=== PATIENT | male | born 1990 | race Caucasian/White ===

== ENCOUNTER → 2019-05-06 | Outpatient (CLI) | payer OTHER ==
[2019-05-06 10:49] LABS: ALBUMIN 3.6 GM/DL (3.2-5.2); ALT/SGPT 24 U/L (12-78); BILIRUBIN,TOTAL 0.3 MG/DL (0.2-1.0); BLOOD UREA NITROGEN 13 MG/DL (7-18); CALCIUM LEVEL 8.4 MG/DL (8.5-10.1); CARBON DIOXIDE LEVEL 26 MEQ/L (21-32); CHLORIDE LEVEL 109 MEQ/L (98-107); CHOLESTEROL LEVEL 176 MG/DL (<200); CHOLESTEROL RISK RATIO 6.068 (<5); CREATININE FOR GFR 0.76 MG/DL (0.70-1.30); FREE T4 1.06 NG/DL (0.76-1.46); GLOMERULAR FILTRATION RATE > 60.0 (>60); GLUCOSE, FASTING 91 MG/DL (70-100); HDL CHOLESTEROL 29 MG/DL (>40); LDL CHOLESTEROL 124 MG/DL (<100); NON-HDL-C 147 MG/DL; POTASSIUM SERUM 4.6 MEQ/L (3.5-5.1); SODIUM LEVEL 141 MEQ/L (136-145); TRIGLYCERIDES LEVEL 116 MG/DL (<150)
[2019-05-06 11:18] LABS: HEMOGLOBIN A1c 5.7 %
== END ==
LOC: M WUC 08:48
PROVIDERS: ATTEND Physician Assistant
DX: Z00.00 Encounter for general adult medical examination without abnormal findings (principal); I11.9 Hypertensive heart disease without heart failure; Z13.220 Encounter for screening for lipoid disorders; Z68.44 Body mass index [BMI] 60.0-69.9, adult

== ENCOUNTER 2019-09-29 03:03 | Emergency (ER) | payer BC, OTHER ==
[~2019-09-29] VITALS: Ht 190.5 cm; Wt 164.5 kg
[2019-09-29] MEDS ORDERED: LISI10TA4 (03:13)
[2019-09-29] MEDS ORDERED: dexameTHASONE 20MG/5ML VIAL (J1100 PER 1MG) IV ONE (04:00)
[2019-09-29] MEDS ORDERED: AMPICILLIN SOD/SULBACTAM SOD 3 GM in D5W MINI-BAG PLUS 100 ML IV ONE (04:00)
[2019-09-29 04:20] LABS: BASO # 0.1 10^3/uL (0.0-0.2); BASO % 0.6 % (0.0-1.0); EOS # 0.4 10^3/uL (0.0-0.5); EOS % 3.6 % (0.0-3.0); HEMATOCRIT 45.5 % (42.0-52.0); HEMOGLOBIN 15.6 g/dl (13.5-17.5); LYMPH # 2.9 10^3/uL (1.5-5.0); LYMPH % 26.4 % (24.0-44.0); MEAN CORPUSCULAR HEMOGLOBIN 29.8 pg (27.0-33.0); MEAN CORPUSCULAR HGB CONC 34.3 g/dl (32.0-36.5); MEAN CORPUSCULAR VOLUME 86.8 fl (80.0-96.0); MONO # 0.6 10^3/uL (0.0-0.8); MONO % 5.1 % (0.0-5.0); NEUTROPHILS # 7.1 10^3/uL (1.5-8.5); NEUTROPHILS % 63.9 % (36.0-66.0); PLATELET COUNT, AUTOMATED 316 10^3/uL (150-450); RED BLOOD COUNT 5.24 10^6/uL (4.30-6.10); WHITE BLOOD COUNT 11.1 10^3/uL (4.0-10.0)
[2019-09-29] MEDS ORDERED: ISOVUE-370 76% 100ML VIAL As Ordered ONE (04:31)
[2019-09-29] MEDS ORDERED: LIDOCAINE VISCOUS 2% SOLN 15ML UDC SS ONE (04:45)
[2019-09-29 04:47] LABS: ERYTHROCYTE SEDIMENTATION RATE 5 mm/hr (0-15)
--- NOTE | 2019-09-29 05:16 | REPVR ---
PROCEDURE INFORMATION: Exam: CT Neck With Contrast Exam date and time: 09/29/2019 4:53 AM Age: 28 years old Clinical indication: Dysphagia / difficulty swallowing; Additional info: Uvulitis TECHNIQUE: Imaging protocol: Computed tomography images of the neck with intravenous contrast. Radiation optimization: All CT scans at this facility use at least one of these dose optimization techniques: automated exposure control; mA and/or kV adjustment per patient size (includes targeted exams where dose is matched to clinical indication); or iterative reconstruction. Contrast material: ISOVUE 370; Contrast volume: 75 ml; Contrast route: INTRAVENOUS (IV); COMPARISON: No relevant prior studies available. FINDINGS: Mastoid air cells: Mastoids are free of acute inflammatory change. Sinuses: The demonstrated paranasal sinuses are free of air-fluid level or suspicious mass. Nasopharynx: No nasopharyngeal mass. The parapharyngeal fat is intact. Oral Cavity: No infiltrating mass on available images. Oropharynx: No infiltrating mass. No significant tonsillar enlargement. Hypopharynx: No infiltrating mass. Larynx: Normal epiglottis. No infiltrating mass. Retropharyngeal space: No retropharyngeal fluid collections. Submandibular/Parotid glands: Glands are normal in size. Thyroid: No enlarged or calcified nodules. Lymph nodes: No lymphadenopathy. Trachea: Visualized trachea is unremarkable. Lungs: Unremarkable as visualized. Bones/joints: No acute fracture. Soft tissues: No significant soft tissue swelling. IMPRESSION: No acute findings. No infiltrating mass. No abscess. Please correlate with clinical findings. Electronically signed by: Best Carrington On 09/29/2019 05:15:50 AM
[2019-09-29 06:45] VITALS: BP 186/127
[2019-09-29] MEDS ORDERED: amLODIPine 5 MG TAB PO ONE (06:45)
[2019-09-29] MEDS ORDERED: DECA4TAB PO (07:23)
[2019-09-29] MEDS ORDERED: AUGM875T28 PO (07:23)
[2019-09-29 07:30] VITALS: BP 176/100
== END 2019-09-29 07:36 | disposition home or self-care (01) ==
LOC: M ED 03:03
DX: K12.2 Cellulitis and abscess of mouth (principal); I10 Essential (primary) hypertension
CPT/HCPCS: 70491; 80047; 85025; 85652; 86140; 87040; 96365; 96375; 99284; J1100; Q9967

== ENCOUNTER 2020-06-12 02:31 | Emergency (ER) | payer BC, SELFPAY ==
[~2020-06-12] VITALS: Ht 190.5 cm; Wt 160.0 kg
[~2020-06-12 02:31] MED LIST: AUGM875T28 PO; DECA4TAB PO; LISI10TA22
[2020-06-12 02:32] VITALS: BP 179/106
[2020-06-12] MEDS ORDERED: LISI30TA4 (02:39)
[2020-06-12] MEDS ORDERED: KETOROLAC 60MG 2ML VIAL IM ONE (03:40)
[2020-06-12] MEDS ORDERED: CLINDAMYCIN 150MG CAPSULE PO ONE (03:40)
[2020-06-12] MEDS ORDERED: CLEO150C PO (03:51)
== END 2020-06-12 04:13 | disposition home or self-care (01) ==
LOC: M ED 02:31
DX: K04.7 Periapical abscess without sinus (principal); I10 Essential (primary) hypertension; E66.9 Obesity, unspecified
CPT/HCPCS: 96372; 99282; J1885

== ENCOUNTER → 2021-10-29 | Outpatient (CLI) | payer BC ==
[~2021-10-29] MED LIST changes: +CLEO150C PO; +LISI30TA4
[2021-10-29 12:04] LABS: ALBUMIN 3.8 GM/DL (3.2-5.2); ALT/SGPT 31 U/L (12-78); BILIRUBIN,TOTAL 0.4 MG/DL (0.2-1.0); BLOOD UREA NITROGEN 13 MG/DL (7-18); CALCIUM LEVEL 9.1 MG/DL (8.5-10.1); CARBON DIOXIDE LEVEL 29 MEQ/L (21-32); CHLORIDE LEVEL 108 MEQ/L (98-107); CHOLESTEROL LEVEL 170 MG/DL (<200); CHOLESTEROL RISK RATIO 5.151 (<5); CREATININE FOR GFR 0.98 MG/DL (0.70-1.30); GLOMERULAR FILTRATION RATE > 60.0 (>60); GLUCOSE, FASTING 90 MG/DL (70-100); HDL CHOLESTEROL 33 MG/DL (>40); LDL CHOLESTEROL 118 MG/DL (<100); NON-HDL-C 137 MG/DL; POTASSIUM SERUM 4.6 MEQ/L (3.5-5.1); SODIUM LEVEL 141 MEQ/L (136-145); TOTAL PROTEIN 7.3 GM/DL (6.4-8.2); TRIGLYCERIDES LEVEL 96 MG/DL (<150)
[2021-10-29 17:57] LABS: HEMOGLOBIN A1c 5.4 %
== END ==
LOC: M WUC 08:55
PROVIDERS: ATTEND Student in an Organized Health Care Education/Training Program
DX: Z13.1 Encounter for screening for diabetes mellitus (principal); I11.9 Hypertensive heart disease without heart failure; E78.2 Mixed hyperlipidemia

== ENCOUNTER 2022-06-19 12:24 | Emergency (ER) | payer BC, OTHER, SELFPAY ==
[~2022-06-19] VITALS: Ht 190.5 cm; Wt 166.8 kg
[2022-06-19] MEDS ORDERED: PERCOCET 5MG/325MG TAB PO ONE (13:30)
[2022-06-19] MEDS ORDERED: ACETAMINOPHEN 325 MG TAB PO ONE (13:45)
[2022-06-19 13:46] LABS: BASO # 0.1 10^3/uL (0.0-0.2); BASO % 0.5 % (0.0-1.0); EOS # 0.5 10^3/uL (0.0-0.5); EOS % 3.1 % (0.0-3.0); HEMATOCRIT 46.7 % (42.0-52.0); HEMOGLOBIN 15.7 g/dl (13.5-17.5); LYMPH # 2.1 10^3/uL (1.5-5.0); MEAN CORPUSCULAR HEMOGLOBIN 29.7 pg (27.0-33.0); MEAN CORPUSCULAR HGB CONC 33.6 g/dl (32.0-36.5); MEAN CORPUSCULAR VOLUME 88.3 fl (80.0-96.0); MONO % 6.9 % (2.0-8.0); NEUTROPHILS # 11.2 10^3/uL (1.5-8.5); PLATELET COUNT, AUTOMATED 300 10^3/uL (150-450); RED BLOOD COUNT 5.29 10^6/uL (4.30-6.10); WHITE BLOOD COUNT 14.9 10^3/uL (4.0-10.0)
[2022-06-19 13:50] VITALS: BP 140/84
[2022-06-19 14:02] LABS: ERYTHROCYTE SEDIMENTATION RATE 30 mm/hr (0-15)
[2022-06-19 14:15] LABS: URIC ACID 10.6 MG/DL (3.7-9.2)
[2022-06-19 14:18] LABS: BLOOD UREA NITROGEN 13 MG/DL (9-23); CALCIUM LEVEL 8.8 MG/DL (8.5-10.1); CARBON DIOXIDE LEVEL 22 MMOL/L (20-31); CHLORIDE LEVEL 105 MMOL/L (98-107); CREATININE FOR GFR 0.79 MG/DL (0.70-1.30); GLOMERULAR FILTRATION RATE > 60.0 (>60); GLUCOSE, FASTING 97 MG/DL (60-100); POTASSIUM SERUM 4.8 MMOL/L (3.5-5.1); SODIUM LEVEL 136 MMOL/L (136-145)
[2022-06-19] MEDS ORDERED: COLC0.6T47 PO (15:02)
[2022-06-19] MEDS ORDERED: INDO50CA91 PO (15:02)
== END 2022-06-19 15:07 | disposition home or self-care (01) ==
LOC: M ED 12:24
DX: M10.061 Idiopathic gout, right knee (principal); I10 Essential (primary) hypertension; Z79.899 Other long term (current) drug therapy

== ENCOUNTER → 2022-11-10 | Outpatient (REF) | payer MEDICARE ==
[~2022-11-10] MED LIST changes: +COLC0.6T47 PO; +INDO50CA91 PO
== END ==
LOC: M SFHCPLAZ 15:34
PROVIDERS: ATTEND Internal Medicine Hematology
DX: Z13.1 Encounter for screening for diabetes mellitus (principal); Z13.220 Encounter for screening for lipoid disorders

== ENCOUNTER → 2022-11-11 | Outpatient (CLI) | payer MEDICARE ==
[2022-11-11 17:07] LABS: ALBUMIN 3.9 G/DL (3.2-5.2); ALKALINE PHOSPHATASE 79 U/L (46-116); ALT/SGPT 32 U/L (7.0-40); AST/SGOT 18 U/L (<34); BILIRUBIN,TOTAL 0.7 MG/DL (0.3-1.2); BLOOD UREA NITROGEN 12 MG/DL (9-23); CARBON DIOXIDE LEVEL 26 MMOL/L (20-31); CHLORIDE LEVEL 105 MMOL/L (98-107); CHOLESTEROL LEVEL 195 MG/DL (<200); CHOLESTEROL RISK RATIO 6.61 (<5); CREATININE FOR GFR 0.87 MG/DL (0.70-1.30); GLOMERULAR FILTRATION RATE > 60.0 (>60); GLUCOSE, FASTING 88 MG/DL (60-100); HDL CHOLESTEROL 29.5 MG/DL (>40); LDL CHOLESTEROL 120.1 MG/DL (<100); NON-HDL-C 165.5 MG/DL; POTASSIUM SERUM 4.1 MMOL/L (3.5-5.1); SODIUM LEVEL 141 MMOL/L (136-145); TRIGLYCERIDES LEVEL 227 MG/DL (<150)
[2022-11-11 18:43] LABS: HEMOGLOBIN A1c 5.3 % (4.0-6.0)
== END ==
LOC: M WUC 11:22
PROVIDERS: ATTEND Student in an Organized Health Care Education/Training Program
DX: I10 Essential (primary) hypertension (principal); Z13.220 Encounter for screening for lipoid disorders; Z13.1 Encounter for screening for diabetes mellitus